=== PATIENT | male | born 1975 | race Caucasian/White ===

== ENCOUNTER 2017-10-28 15:41 | Inpatient (IN) ==
[2017-10-28] MEDS ORDERED: Acetaminophen 325 MG Tablet PO PRN (21:27)
[2017-10-28] MEDS ORDERED: Aluminum/Magnesium/Simethacone Susp 30 ML UDC PO PRN (21:27)
[2017-10-28] MEDS ORDERED: LORazepam 1 MG Tablet PO PRN (21:31)
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
[2017-10-29] MEDS: carBAMazepine 100 MG Chewable Tablets PO SCH ×2 (15:28→20:14)
--- NOTE | 2017-10-29 19:51 | ECG ---
Date Performed: 10/28/2017 Time Performed: 22:31:17 PTAGE: 42 years EKG: SINUS BRADYCARDIA BORDERLINE ECG NO PREVIOUS TRACING DOCTOR: Link Rowan Interpretating Date/Time 10/29/2017 19:50:28
[2017-10-30] MEDS: carBAMazepine 100 MG Chewable Tablets PO SCH ×2 (09:55→20:14)
--- NOTE | 2017-10-30 13:19 | P.PNPSY ---
Subjective Remarks: Patient seen in his room with floor staff, chart reviewed, patient compliant medications, did not meet [facility] protocol for medication either. All Ativan orders have been discontinued. Patient seen this morning he is calm pleasant with me much calmer the degree of agitation and paranoia is markedly diminished. He also apologized for his behavior yesterday. He states he slept well. Except for having some "nightmares". He denies suicidality homicidality voices or visions. We again discussed sober living facilities he states he might be willing to consider sober living [facility] in [place] we will give him the phone numbers to reach them Review of Systems All other systems reviewed negative except as stated in HPI Mental Status Examination Appearance: Appropriate Consciousness: Alert (Mildly) Orientation: Person, Place, Date/Time, Situation Motor Activity: Normal gait Speech: Pressured (Calmer), Rapid (Calm her) Language: Adequate Fund of Knowledge: Adequate Attention and Concentration: Adequate Memory: Unremarkable Mood: Appropriate, Angry (Markedly diminished), Sad, Irritable (Markedly diminished) Affect: Other (Good range and intensity) Thought Process & Associations: Intact Thought Content: Appropriate Hallucination Type: Auditory Delusion Type: Paranoid (Markedly diminished) Suicidal Ideation: Yes (Denies today) Suicidal Plan: Yes (Denies today) Suicidal Intention: Yes Homicidal Ideation: No Homicidal Plan: No Homicidal Intention: No Insight: Fair (Denies today) Judgment: Poor (Improved) Assessment and Plan - Assessment (1) Adjustment disorder with mixed disturbance of emotions and conduct Code(s): F43.25 - Adjustment disorder with mixed disturbance of emotions and conduct Status: Acute (2) Polysubstance abuse Code(s): F19.10 - Other psychoactive substance abuse, uncomplicated Status: Acute - Plan Plan: Patient's mood demeanor paranoia he does not improve. States she slept well last night. Denies suicidality or voices today. Is willing to consider sober living facility in [place] Justification for Continued Inpatient Stay: At this time patient would decompensate a place to a lower level of care Discharge Planning: To be determined Request Healthcare Surrogate/Guardian Advocate?: No
--- NOTE | 2017-10-30 16:15 | P.CONPSY ---
Provisional Diagnosis Admission Date: October 28, 2017 20:06 [place] I.: Adjustment disorder with mixed disturbances of emotion and conduct, polysubstance abuse History of Present Illness Service: Psychiatry Consult date: 10/30/17 Requesting Physician: Otis Mitchell Reason for Consult: Second opinion Primary Care Provider: UNKNOWN History of Present Illness: Patient is a 42 y/o man, homeless, who carries a diagnosis of PTSD, depression, THC/opiate use disorder who was brought in under Cid Act for suicidla ideation and seen for second opinion. Patient was found lying on hospital bed, noted to be calm and cooperative, states that he is detoxing from subutex which he has been taking for the past 10 months. He states having relapsed on opiate use after he had found out that his son was not his biological son and had been having SI for the past 2-3 weeks, last time being before coming to the hospital. He reports feeling less depressed since taking his medications, sleeping well and wanting to go to rehab. Review of Systems All other systems reviewed negative except as stated in HPI [facility] - History History Provided By: Patient, Medical Record - Tobacco History Second Hand Smoke Exposure: No Tobacco Use In Past 30 Days: Yes Smoking Status: Current every day smoker Tobacco Type: Cigarettes - Alcohol History How Often Do You Have a Drink Containing Alcohol: Never - Substance Use History Substance History: No History of Abuse - Substance Use Type Marijuana Status: Active Route Used: Inhalation Reason for Use: Calm Down, Feels Good Comment: PATIENT USES WEED, [employer] AND OTHER STREET DRUGS WHEN OFF OF SUBUTEX. - Travel History Recent Travel in the [place] Within the Last 8 Weeks: No Recent Travel Out of the Country Within the Last 8 Weeks: No - Immunization History Tetanus Immunization: >5 Years Hx Influenza Vaccine This Season: No Medications and Allergies Active Medications: Active Medications Acetaminophen (Tylenol) 650 mg PO Q4H PRN PRN Reason: Pain 1-5 or Temp >101F Al Hydrox/Mg Hydrox/Simethicone (Mag-Al Plus Susp Liq) 30 ml PO Q6H PRN PRN Reason: DYSPEPSIA Al Hydroxide/Mg Hydroxide (Milk Of Magnesia Liq) 30 ml PO Q12H PRN PRN Reason: Mild Constipation Carbamazepine (Tegretol Chewable) 100 mg PO BID REJI Last Admin: 10/30/17 09:55 Dose: 100 mg Diphenhydramine HCl (Benadryl) 50 mg PO HS PRN PRN Reason: INSOMNIA Hydroxyzine HCl (Atarax) 50 mg PO Q6H PRN PRN Reason: ANXIETY Last Admin: 10/29/17 10:23 Dose: 50 mg Ziprasidone (Geodon) 20 [facility] PO [facility]ID[facility] Last Admin: 10/30/17 09:55 Dose: 20 mg Allergies Allergy/AdvReac Type Severity Reaction Status Date / Time No Known Allergies Allergy Unverified 10/28/17 20:52 Exam Vital signs: Vital Signs 10/29/17 18:25 10/30/17 05:54 Temperature 98.1 F 98.0 F Pulse Rate 60 52 L Respiratory Rate 17 16 Blood Pressure 101/49 L 108/60 Pulse Oximetry 92 L 94 L Intake & Output 10/29/17 10/30/17 10/30/17 18:59 06:59 18:59 Intake Total 480 / 480 Balance 480 / 480 Intake: Oral 480 / 480 Narrative: Not noted to be in acute distress, no gross motor abnormalities, no tremor or EPS, no psychomotor agitation or retardation. - Constitutional no acute distress, cooperative Mental Status Examination Appearance: Appropriate Consciousness: Alert (Mildly) Orientation: Person, Place, Date/Time, Situation Motor Activity: Normal gait Speech: Pressured (Calmer), Rapid (Calm her) Language: Adequate Fund of Knowledge: Adequate Attention and Concentration: Adequate Memory: Unremarkable Mood: Appropriate, Angry (Markedly diminished), Sad, Irritable (Markedly diminished) Affect: Other (Good range and intensity) Thought Process & Associations: Intact Thought Content: Appropriate Hallucination Type: Auditory Delusion Type: Paranoid (Markedly diminished) Suicidal Ideation: Yes (Denies today) Suicidal Plan: Yes (Denies today) Suicidal Intention: Yes Homicidal Ideation: No Homicidal Plan: No Homicidal Intention: No Insight: Fair (Denies today) Judgment: Poor (Improved) Assessment and Plan - Assessment (1) Adjustment disorder with mixed disturbance of emotions and conduct Code(s): F43.25 - Adjustment disorder with mixed disturbance of emotions and conduct Status: Acute (2) Polysubstance abuse Code(s): F19.10 - Other psychoactive substance abuse, uncomplicated Status: Acute - Plan Plan: I have seen and examined this patient, reviewed the documentation, and I agree and concur with Dr. Mitchell assessment and plan. I have completed second opinion for the petition for involuntary hospitalization. Consult appreciated. Justification for Continued Inpatient Stay: At risk for further decompensation at lower level of care. Request Healthcare Surrogate/Guardian Advocate?: No
[2017-10-31 06:24] VITALS: BP 111/56; PULSE 56; RESP 15; TEMP 97.8; O2SAT 94
[2017-10-31] MEDS: carBAMazepine 100 MG Chewable Tablets PO SCH (08:49)
--- NOTE | 2017-10-31 09:45 | P.TTN ---
- Patient Problems Problems: 1. Discharge planning 2. Medication compliance 3. Knowledge deficit 4. Lack of coping skills - Progress Toward Goals Provider Present: Dr. Priscila Mitchell Provider Input: started on medications asked for sober living Psychiatric Counselors Present: Briana Bradley LCSW (referred for sober living, later upset he could not get it became demanding and would like [employer] to [place]) Group Spec/RT/OT/AUGUSTE Present: Jarrod Smith OT (not much attendance yet, still new ) - Documentation Teaching Recipient: Patient
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
== END 2017-10-31 20:05 | disposition home or self-care (01) ==
LOC: H260 20:06
PROVIDERS: ADMIT Psychiatry & Neurology Psychiatry; ATTEND Psychiatry & Neurology Psychiatry